=== PATIENT | male | born 1940 | race Caucasian/White ===

== ENCOUNTER 2024-09-25 10:17 | Emergency (ER) | payer MEDICARE, OTHER, SELFPAY ==
[2024-09-25 10:20] VITALS: BP 148/91
[2024-09-25 10:37] LABS: % Basophils 0.6 % (0-2); % Eosinophils 1.1 % (0-6); % Immature Granulocytes 0.3 % (0-0.5); % Lymphocytes 26.7 % (20.5-51.1); % Monocytes 8.4 % (1.7-9.3); % Neutrophils 62.9 % (42.2-75.2); Absolute Basophils 0.1 10^3/uL (0-0.2); Absolute Eosinophils 0.1 10^3/uL (0-0.7); Absolute Lymphocytes 2.1 10^3/uL (1.2-3.4); Absolute Monocytes 0.7 10^3/uL (0.1-0.6); Absolute Neutrophils 4.9 10^3/uL (1.4-6.5); Hematocrit 43.6 % (39.0-52.0); Hemoglobin 15.1 g/dL (13.0-18.0); Mean Corp Hgb Conc. 34.6 g/dL (33.0-37.0); Mean Corpuscular Hgb 32.3 pg (27.0-31.0); Mean Corpuscular Volume 93.4 fL (80.0-94.0); Mean Platelet Volume 11.1 fL (7.4-10.4); Nucleated Red Blood Cells % 0 % (-); Platelet Count 223 10^3/uL (130-400); Red Blood Cell Count 4.67 10^6/uL (4.70-6.10); Red Cell Dist. Width 13.1 % (11.5-14.5); White Blood Cell Count 7.8 10^3/uL (4.8-10.8)
[2024-09-25 10:48] LABS: ALT (SGPT) 24 U/L (0-50); AST (SGOT) 25 U/L (17-59); Albumin 4.1 g/dl (3.5-5.0); Alkaline Phosphatase 77 U/L (38-126); Blood Urea Nitrogen 19 mg/dl (9-20); Calcium 9.1 mg/dl (8.4-10.2); Carbon Dioxide 28 mmol/L (22-30); Chloride 105 mmol/L (98-107); Glucose 102 mg/dl (70-99); Lipase 78 U/L (23-300); Potassium 4.4 mmol/L (3.5-5.1); Sodium 138 mmol/L (135-145); Total Bilirubin 0.7 mg/dl (0.2-1.3); Total Protein 6.6 g/dl (6.3-8.2); eGFR > 60.00
[2024-09-25 10:57] VITALS: BMI 29.2
--- NOTE | 2024-09-25 12:43 | ED.GENMED ---
History of Present Illness
General
Chief Complaint: Rectal Bleeding
Source: patient
Exam Limitations: none
Time Seen by Provider: 09/25/24 10:48
Nursing documentation reviewed up to this point in time: agreed with
History of Present Illness
History of Present Illness:
83-year-old male is here for black stools for about the past 5 days, he has been having a lot of burping and epigastric discomfort and has been taking Pepto-Bismol daily. He denies chest pain or trouble breathing. He denies abdominal pain.
Past History
Past History
ED Past Medical History: HTN
ED Past Surgical History: None
Social History
Tobacco: Non-smoker
Alcohol: Occasional
Personal:
Living: with family
Employment: Retired
Review of Systems
Review of Systems
Allergies reviewed?: Yes
All Other Systems: ROS reviewed and negative except as documented in HPI and ROS
Constitutional: Denies fever or fatigue
Respiratory: Denies trouble breathing
Cardiac: Denies chest pain, palpitations or syncope
ABD/GI: Reports black stools; Denies abdominal pain, nausea, vomiting, diarrhea or anorexia
: Denies dysuria or difficulty voiding
Musculoskeletal: Reports no symptoms
Skin: Reports no symptoms
Neurological: Reports no symptoms
Phy Exam
Physical Exam
Physical Exam:
GENERAL: No acute distress. A&Ox3.
CONSTITUTIONAL: Afebrile.
EYES: clear, conjunctivae normal
ENMT: moist mucus membranes
RESPIRATORY: Regular respirations, nonlabored, lungs clear.
CARDIOVASCULAR: Regular rate and rhythm, no murmurs, no rubs.
GI: Soft, nontender, normal BS
Rectal: Small amount of brown stool in rectal vault, stool hematest negative
MUSCULOSKELETAL: Moves with ease. Well perfused.
SKIN: Warm, dry, pink
PSYCH: Normal mood and affect. Well kept, interactive and appropriate
NEUROLOGIC: Awake, alert and oriented. No focal neurological deficits
Course
Orders/Labs/Results
Orders:
Orders
09/25/24 10:27
Complete Blood Count/With Diff Urgent
Comprehensive Metabolic Panel Urgent
Lipase Urgent
Abnormal Lab Results
09/25/24
10:27
RBC 4.67 L 10^6/uL
(4.70-6.10)
MCH 32.3 H pg
(27.0-31.0)
MPV 11.1 H fL
(7.4-10.4)
Absolute Monos (auto) 0.7 H 10^3/uL
(0.1-0.6)
Glucose 102 H mg/dl
(70-99)
09/25/24 10:27
09/25/24 10:27
Vital Signs
Initial and Last Documented VS:
Initial Vital Signs
Temp Pulse Resp BP Pulse Ox
97.8 F 62 16 148/91 98
09/25/24 10:20 09/25/24 10:20 09/25/24 10:20 09/25/24 10:20 09/25/24 10:20
Last Documented Vital Signs
Temp Pulse Resp BP Pulse Ox
97.8 F 60 18 148/91 99
09/25/24 10:20 09/25/24 13:25 09/25/24 13:25 09/25/24 10:20 09/25/24 13:25
MDM/Problems Addressed
Differential Diagnosis Includes:
GI bleed, hemorrhoids
MDM/Problems Addressed:
83-year-old male is here for black stools for about the past 5 days, he has been having a lot of burping and epigastric discomfort and has been taking Pepto-Bismol daily. He denies chest pain or trouble breathing. He denies abdominal pain.
Afebrile, NAD
CBC, CMP unremarkable
Patient rectal exam: Brown stool, hematest negative
Explained to patient that Pepto-Bismol can turn stools black.
He was referred to the GI doctor for his epigastric discomfort, a prescription for Protonix was sent to his pharmacy
*Critical Care Note
Total Time (30-74mins, 75-104mins- exclusive of procedures): Not Applicable
ED Attending Note
-
Portions of this chart may have been created with voice recognition software.� Occasional wrong word or��sound alike� substitutions may have occurred due to the inherent limitations of voice recognition software.
Discharge Plan
Departure
Patient Disposition: Home (Routine Discharge)
Date of Disposition: 09/25/24
Time of Disposition: 12:41
Patient with high blood pressure during this ER visit?: No
Condition: Good
Discharge Problem:
Black stools
Prescriptions:
New
pantoprazole [Protonix] [address] for susp in packet
40 mg PO DAILY Qty: 30 0RF
No Action
amlodipine [Norvasc] 5 mg Tablet
5 mg PO DAILY
aspirin [Justin Aspirin] 325 mg Tablet
650 mg PO DAILYPRN PRN (Reason: mild pain/ fever)
Referrals:
Lauren Mckeon MD [Active] - Next open appointment
Kael Ventura MD [Family Provider] -
Activity Restrictions/Additional Instructions:
As we discussed, your stools have been black most likely from the Pepto-Bismol.
Because you have been having epigastric/stomach problems the past week or so call make an appointment with the GI doctor.
I sent a prescription to your pharmacy for Protonix, take it daily for at least the next 2 weeks to see if it helps
Interventions
Interventions:
*Risk Screen - Suicide Last Done: 09/25/24 10:57
*General Assessment Last Done: 09/25/24 10:57
*Neglect/Abuse Screening Last Done: 09/25/24 10:57
*Nursing Disposition Last Done: 09/25/24 13:26
SE-Qogfhf-Dzkhcszjgh Assessment Last Done: 09/25/24 10:57
ED- Cardiac Assessment Last Done: 09/25/24 10:57
ED- Pulmonary Assessment Last Done: 09/25/24 10:57
Discharge Date and Time
Discharge Date/Time: 09/25/24 13:26
Print Language: [id number]
== END 2024-09-25 13:26 | disposition home or self-care (01) ==
LOC: EMR 10:17
PROVIDERS: Emergency Medicine; EMERGENCY PHYSICIAN Student in an Organized Health Care Education/Training Program; FAMILY PHYSICIAN Family Medicine
DX: R19.5 Other fecal abnormalities (principal); I10 Essential (primary) hypertension
CPT/HCPCS: 99283; 80053; 83690; 85025

== ENCOUNTER 2025-02-28 06:24 | Day surgery (SDC) | payer MEDICARE, OTHER, SELFPAY | END 2025-02-28 11:31 | disposition home or self-care (01) | LOC: GI 06:24 | PROVIDERS: ATTENDING PHYSICIAN Internal Medicine Gastroenterology | DX: R10.13 Epigastric pain (principal); K44.9 Diaphragmatic hernia without obstruction or gangrene | CPT/HCPCS: 43235 ==